=== PATIENT | male | born 1990 | race Two or more races ===

== ENCOUNTER → 2019-05-11 | Outpatient (CLI) | payer OTHER ==
--- NOTE | 2019-05-11 16:16 | REP ---
Clinical: Sprain. Technique: AP, lateral, bilateral oblique views of the right ankle. Findings: Swelling is appreciated consistent with inversion injury. Small corticated fragment at the medial malleolus likely chronic and less likely small acute avulsion fracture. Ankle mortise intact. No further acute fracture dislocation identified or suggested. Impression: Swelling. As above. Electronically Signed by Elieser Ortiz MD 05/11/2019 04:07 P
--- NOTE | 2019-05-11 16:17 | REP ---
Clinical: Trauma. Technique: AP, lateral, bilateral oblique views of the right foot. Findings: Osseous structures, joint spaces, and surrounding soft tissues appear normal. No obvious acute fracture dislocation. Swelling over the lateral malleolus consistent with inversion injury. Impression: Lateral ankle swelling. No acute fracture or dislocation appreciated. Electronically Signed by Elieser Ortiz MD 05/11/2019 04:09 P
== END ==
LOC: M LRY 15:51
PROVIDERS: ATTEND Nurse Practitioner Family
DX: S99.921A Unspecified injury of right foot, initial encounter (principal); S99.911A Unspecified injury of right ankle, initial encounter; M79.89 Other specified soft tissue disorders; X58.XXXA Exposure to other specified factors, initial encounter; Y92.9 Unspecified place or not applicable
CPT/HCPCS: 73610; 73630; G0463